=== PATIENT | male | born 1965 | race Caucasian/White ===

== ENCOUNTER 2018-06-08 13:53 | Inpatient (IN) | payer OTHER ==
--- NOTE | ~2018-06-08 | EKG ---
[place], [place] ELECTROCARDIOGRAM REPORT NAME: JENNY CHAPMAN UNIT #: [id number] ROOM: 405 DOCTOR: SULTANA DRAFT REPORT BIRTHDATE: [birth year] [facility] Test Date: 2018-06-08 Test Time: 14:13:07 Pat Name: JENNY CHAPMAN Department: Room: 405 Gender: M Turn Operator: NESSA : 1965 Requested By: ED TOPETE Order Number: [id number] Reading MD: Vinny Guerrero MD Measurements Intervals [place] Rate: 112 P: 63 [place]: 176 QRS: -51 QRSD: 104 T: 39 QT: 343 QTc: 469 Interpretive Statements Sinus tachycardia Left anterior fascicular block Anteroseptal infarct, old Baseline wander in lead(s) V1 Electronically Signed On 06-09-2018 12:03:25 PST by Vinny Guerrero MD CM:EKGRPT:ELECTROCARDIOGRAM REPORT [id number] ED TOPETE EPIPHANY DRAFT REPORT ED TOPETE
[~2018-06-08 13:53] MED LIST: OXYCONTIN60 MG PO; PERCOCET 325 MG1 TA2 PO
[2018-06-08 13:54] VITALS: BP 140/61
[2018-06-08 14:31] LABS: HEMOGLOBIN 13.4 g/dl (14.0-18.0); MEAN CELL VOLUME 88.7 fl (80.0-94.0); MEAN CORPUSCULAR HGB CONC 32.7 g/dl (33.0-37.0); MEAN PLATELET VOLUME 8.9 fl (9.6-12.3); PLATELET COUNT AUTOMATED 341 10*3/uL (130-400); RED BLOOD COUNT 4.62 10*6/uL (4.50-5.90); RED CELL DISTRI WIDTH 13.9 % (0-14.5); WHITE BLOOD COUNT 21.7 10*3/uL (4.8-10.8)
[2018-06-08 14:44] LABS: ACT PARTIAL THROMBO TIME 28.3 SECONDS (20.8-31.5); INTERNATIONAL NORM RATIO 1.1 (2.0-3.5)
[2018-06-08 14:47] LABS: ALKALINE PHOSPHATASE 96 U/L (45-117); BUN 9 mg/dl (7-24); CHLORIDE 97 mmol/L (98-107); CREATININE 0.63 mg/dL (0.70-1.30); POTASSIUM 3.8 mmol/L (3.5-5.1); SGOT/AST 21 IU/L (3-35); SGPT/ALT 36 U/L (12-78); SODIUM 134 mmol/L (136-145)
[2018-06-08 14:49] LABS: PLATELET SUFFICIENCY NORMAL (NORMAL); POLYCHROMASIA SLIGHT; TOTAL CELLS COUNTED 100 #CELLS
[2018-06-08 14:52] LABS: TROPONIN I < 0.015 ng/ml (<0.045)
[2018-06-08 14:52] LABS: ABG BASE EXCESS -2.1 mmol/L (-2.0-2.0); ABG HCO3 21.2 mmol/l (22-26); ABG O2 SATURATION 92.5 % (95-97); ARTERIAL BLOOD GAS PCO2 33.4 mmHg (35-45); ARTERIAL BLOOD GAS PH 7.419 (7.35-7.45)
[2018-06-08 15:02] VITALS: BP 140/60
[2018-06-08 15:05] VITALS: BP 126/50
--- NOTE | 2018-06-08 15:05 | NUR ---
A 52, admitted to , under the services of TANO Beltran DO with a diagnosis of SEPSIS, PNEUMONIA. Chief complaint is SHORTNESS OF BREATH. Patient arrived via ambulatory from ER. Monitor applied. Initial assessment completed. Vital signs taken and recorded. TANO BELTRAN DO notified of admission to the unit. Orders received. See assessment for past medical history, medications and allergies. Patient and/or family oriented to unit. [facility] visitation policy reviewed. Clothing/patient valuable form completed. SCOT GIVENS
[2018-06-08] MEDS ORDERED: INVOKANA300 M1 PO (15:18)
[2018-06-08] MEDS ORDERED: FLUOXETINE HYDR20 M1 PO (15:18)
[2018-06-08] MEDS ORDERED: TRESIBA FL200 UNIT/1 SQ (15:19)
[2018-06-08] MEDS ORDERED: VITAMIN D5000 UNI1 PO (15:19)
[2018-06-08] MEDS ORDERED: BUPRENORPHIN NALOXON (15:20)
[2018-06-08] MEDS ORDERED: GOOD NEIGHBOR L10 MG PO (15:20)
[2018-06-08] MEDS ORDERED: 24 HOUR ALLER15.8 ML INH (15:20)
[2018-06-08] MEDS ORDERED: QUINAPRIL-HCTZ1 EAC1 PO (15:21)
[2018-06-08] MEDS ORDERED: GLIMEPIRIDE4 M1 PO (15:35)
[2018-06-08] MEDS ORDERED: ROSUVASTATIN CA40 MG PO (15:35)
[2018-06-08] MEDS ORDERED: OLANZAPINE2.5 MG PO (15:36)
[2018-06-08] MEDS ORDERED: CO Q10100 MG PO (15:36)
[2018-06-08] MEDS ORDERED: FOLTX TABLET1 EACH PO (15:36)
[2018-06-08 16:04] VITALS: BP 135/59
[2018-06-08 20:00] VITALS: BP 123/59
--- NOTE | 2018-06-08 21:08 | NUR ---
DR. LARA WAS NOTIFIED OF THE PATIENTS SUBOXONE THAT IS NOT VERIFIED ON THE EMAR. SHE STATED WILL HAVE TO WAIT UNTIL MORNING FOR A PRESCRIPTION.
[2018-06-08] MEDS ORDERED: SUBOXONE 8 MG-1 EACH SL (21:20)
--- NOTE | 2018-06-08 23:33 | NUR ---
NOTIFIED OF FINE RALES HEARD IN BL POSTERIOR LUNG BASES. DISCUSSED PATIENT'S CLAIMS OF TAKING LASIX DAILY BUT NOT KNOWING DOSE. ALSO DISCUSSED FLUIDS GOING AT 125 ML/HR. NO NEW ORDERS RECEIVED AT THIS TIME.
[2018-06-09] VITALS: BP 135/65
[2018-06-09] MEDS ORDERED: HYDROXYZINE PAM25 M1 PO (03:20)
[2018-06-09 06:27] LABS: BASO % 0.2 % (0.0-1.0); HEMATOCRIT 36.6 % (42.0-52.0); HEMOGLOBIN 11.8 g/dl (14.0-18.0); LYMPH # 1.5 10*3/uL (1.3-4.4); LYMPH % 8.5 % (27.0-41.0); MEAN CELL VOLUME 89.5 fl (80.0-94.0); MEAN CORPUSCULAR HGB 28.9 pg (27.0-31.0); MEAN CORPUSCULAR HGB CONC 32.2 g/dl (33.0-37.0); MONO # 0.6 10*3/uL (0.1-1.0); MONO % 3.3 % (3.0-9.0); NEUT # 15.3 10*3/uL (2.3-7.9); NEUT % 87.4 % (47.0-73.0); PLATELET COUNT AUTOMATED 299 10*3/uL (130-400); RED BLOOD COUNT 4.09 10*6/uL (4.50-5.90); RED CELL DISTRI WIDTH 13.7 % (0-14.5); WHITE BLOOD COUNT 17.5 10*3/uL (4.8-10.8)
[2018-06-09 06:58] LABS: ACT PARTIAL THROMBO TIME 30.3 SECONDS (20.8-31.5); ALBUMIN 2.5 gm/dl (3.1-4.5); ALKALINE PHOSPHATASE 83 U/L (45-117); BUN 11 mg/dl (7-24); CHLORIDE 106 mmol/L (98-107); CHOLESTEROL 110 mg/dL (<200); CREATININE 0.46 mg/dL (0.70-1.30); INTERNATIONAL NORM RATIO 1.1 (2.0-3.5); PHOSPHOROUS 2.4 mg/dL (2.5-4.9); SGOT/AST 15 IU/L (3-35); SGPT/ALT 28 U/L (12-78); SODIUM 138 mmol/L (136-145); TOTAL PROTEIN 7.2 gm/dL (6.4-8.2); TRIGLYCERIDES 100 mg/dl (<150); VLDL CHOLESTEROL 20 mg/dL (6-40)
[2018-06-09 07:06] LABS: FREE T4 1.44 ng/dl (0.76-1.46); HDL CHOLESTEROL 40 mg/dl (40-60); LDL CHOLESTEROL 50 mg/dL (9-159); THYROID STIM HORMONE (HS) 0.084 uIU/ml (0.358-4.75)
[2018-06-09 08:00] VITALS: BP 112/60
--- NOTE | 2018-06-09 08:27 | NUR ---
24 HR CHART CHECK COMPLETE
--- NOTE | 2018-06-09 09:07 | NUR ---
CALLED DR GRIGSBY AND REQUESTED CONTINUATION OF PTS HOME MEDS
[2018-06-09 09:45] LABS: VITAMIN D, 25-HYDROXY 24.3 ng/mL (30-100)
--- NOTE | 2018-06-09 10:14 | NUR ---
PER REQUEST OF DR MITHCELL ASKED SECURITY TO ESCORT PT TO CAR TO RETRIEVE SUBOXONE
[2018-06-09 11:57] VITALS: BP 118/61
[2018-06-09 16:00] VITALS: BP 113/50
[2018-06-09 20:00] VITALS: BP 108/44
--- NOTE | 2018-06-09 20:59 | NUR ---
PATIENT STATES HE STILL FEELS SLIGHTLY SOB, O2 APPLIED VIA 1L NC. WILL MONITOR. CALL LIGHT LEFT IN REACH.
--- NOTE | 2018-06-09 21:47 | NUR ---
PATIENT HAS 1+ BLL EDEMA. STATES HE TOOK HIS HCTZ TODAY SO IT SHOULDN'T BE LIKE THAT. DISCUSSED WITH PATIENT SITUATION WHERE 1800 DOSE OF HCTZ WAS HELD. PATIENT MISTAKENLY THOUGH RN WAS TALKING ABOUT HYDROXYZINE. REQUESTING BOTH HYDROXYZINE AND HCTZ. BOTH GIVEN AT THIS TIME. PATIENT ALSO COVERED WITH 22 UNITS OF INSULIN FOR BSG 482. WILL MONITOR.
--- NOTE | 2018-06-09 23:42 | NUR ---
SPOKE TO REGARDING PATIENT'S BSG 417 AFTER 22 UNITS OF INSULIN. INSTRUCTED TO GIVE AN ADDITIONAL DOSE OF INSULIN PER SLIDING SCALE (22UNITS) AND RE-CHECK BSG IN 1 HR.
[2018-06-10] VITALS: BP 118/52
--- NOTE | 2018-06-10 01:03 | NUR ---
NOTIFIED OF BSG 303 AFTER 22 UNITS OF INSULIN. NO NEED FOR ANY MORE INSULIN AT THIS TIME. INSTRUCTED TO CHECK BSG IN AM.
[2018-06-10 07:41] LABS: BASO % 0.2 % (0.0-1.0); HEMATOCRIT 36.1 % (42.0-52.0); HEMOGLOBIN 11.7 g/dl (14.0-18.0); LYMPH # 1.4 10*3/uL (1.3-4.4); LYMPH % 7.9 % (27.0-41.0); MEAN CELL VOLUME 89.6 fl (80.0-94.0); MEAN CORPUSCULAR HGB CONC 32.4 g/dl (33.0-37.0); MEAN PLATELET VOLUME 9.1 fl (9.6-12.3); MONO # 0.7 10*3/uL (0.1-1.0); MONO % 4.2 % (3.0-9.0); NEUT # 15.2 10*3/uL (2.3-7.9); NEUT % 86.9 % (47.0-73.0); PLATELET COUNT AUTOMATED 321 10*3/uL (130-400); RED BLOOD COUNT 4.03 10*6/uL (4.50-5.90); WHITE BLOOD COUNT 17.4 10*3/uL (4.8-10.8)
--- NOTE | 2018-06-10 07:48 | NUR ---
NOTIFIED OF HOME SUBOXONE NOT BEING ORDERED. AWARE THAT PATIENT HAS HIS OWN SUPPLY WITH HIM. NEW ORDERS TO FOLLOW.
[2018-06-10 07:51] LABS: ALBUMIN 2.5 gm/dl (3.1-4.5); ALKALINE PHOSPHATASE 94 U/L (45-117); BUN 17 mg/dl (7-24); CHLORIDE 107 mmol/L (98-107); CREATININE 0.58 mg/dL (0.70-1.30); POTASSIUM 3.8 mmol/L (3.5-5.1); SGOT/AST 23 IU/L (3-35); SGPT/ALT 29 U/L (12-78); SODIUM 140 mmol/L (136-145); TOTAL PROTEIN 6.7 gm/dL (6.4-8.2)
--- NOTE | 2018-06-10 09:00 | NUR ---
Phlebotomist Lab Assistant in to talk to patient. Patient states lives at home with alone. There are few steps in the home. Physician: francis jin [facility]acy: [facility] Home health services: none Patient's level of ADLs: INDEPENDENT Patient has working utilities: all working DME: none Follow-up physician's appointment after d/c: will be made by hospitalist nurse director upon discharge Does patient want to access PORTAL?: no Discharge plan discussed with patient, patient lives at home alone, he is independent in adls and ambulation, patient states he will be going back home when able and denies any home needs. JOSÉ SANTOS
[2018-06-10] MEDS ORDERED: MUCINEX ER600 MG PO (10:34)
[2018-06-10] MEDS ORDERED: LEVAQUIN750 M1 PO (10:35)
[2018-06-10] MEDS ORDERED: PREDNISONE10 MG PO (10:35)
--- NOTE | 2018-06-10 13:33 | NUR ---
Discharge instructions reviewed with patient/family. Patient receptive and verbalizes understanding. Follow-up care arranged. Written instructions given to patient/family. ADONAY AMADOR
== END 2018-06-10 13:59 | disposition home or self-care (01) | DRG 871 ==
LOC: ED 13:53 → EDHOLD 15:17 → 4E 16:13
PROVIDERS: Family Medicine; Nurse Practitioner Family; Student in an Organized Health Care Education/Training Program; ADMIT Internal Medicine
DX: A41.9 Sepsis, unspecified organism (principal); J18.9 Pneumonia, unspecified organism; J96.01 Acute respiratory failure with hypoxia; J44.1 Chronic obstructive pulmonary disease with (acute) exacerbation; E87.1 Hypo-osmolality and hyponatremia; E44.0 Moderate protein-calorie malnutrition; J44.0 Chronic obstructive pulmonary disease with (acute) lower respiratory infection; R65.20 Severe sepsis without septic shock; I10 Essential (primary) hypertension; D64.9 Anemia, unspecified; E78.5 Hyperlipidemia, unspecified; E11.65 Type 2 diabetes mellitus with hyperglycemia; J30.2 Other seasonal allergic rhinitis; F32.9 Major depressive disorder, single episode, unspecified; F17.210 Nicotine dependence, cigarettes, uncomplicated; E83.41 Hypermagnesemia; E66.9 Obesity, unspecified; Z87.898 Personal history of other specified conditions; Z71.6 Tobacco abuse counseling; Z88.0 Allergy status to penicillin; Z91.030 Bee allergy status; Z83.2 Family history of diseases of the blood and blood-forming organs and certain disorders involving the immune mechanism; Z83.3 Family history of diabetes mellitus; Z79.899 Other long term (current) drug therapy; Z79.84 Long term (current) use of oral hypoglycemic drugs; Z68.33 Body mass index [BMI] 33.0-33.9, adult

== ENCOUNTER 2019-08-21 09:05 | Inpatient (IN) | payer SELFPAY ==
[~2019-08-21] VITALS: Ht 185.4 cm; Wt 125.0 kg
[2019-08-21] VITALS (9 sets, daily range): BP systolic 100–146; BP diastolic 51–78
[~2019-08-21 09:05] MED LIST changes: +24 HOUR ALLER15.8 ML INH; +BUPRENORPHIN NALOXON; +CO Q10100 MG PO; +FLUOXETINE HYDR20 M1 PO; +FOLTX TABLET1 EACH PO; +GLIMEPIRIDE4 M1 PO; +GOOD NEIGHBOR L10 MG PO; +HYDROXYZINE PAM25 M1 PO; +INVOKANA300 M1 PO; +LEVAQUIN750 M1 PO; +MUCINEX ER600 MG PO; +OLANZAPINE2.5 MG PO; +PREDNISONE10 MG PO; +QUINAPRIL-HCTZ1 EAC1 PO; +ROSUVASTATIN CA40 MG PO; +SUBOXONE 8 MG-1 EACH SL; +TRESIBA FL200 UNIT/1 SQ; +VITAMIN D5000 UNI1 PO
[2019-08-21 09:25] LABS: HEMATOCRIT 45.7 % (42.0-52.0); HEMOGLOBIN 14.5 g/dl (14.0-18.0); MEAN CELL VOLUME 91.2 fl (80.0-94.0); MEAN CORPUSCULAR HGB 28.9 pg (27.0-31.0); MEAN CORPUSCULAR HGB CONC 31.7 g/dl (33.0-37.0); MEAN PLATELET VOLUME 9.1 fl (9.6-12.3); PLATELET COUNT AUTOMATED 163 10*3/uL (130-400); RED BLOOD COUNT 5.01 10*6/uL (4.50-5.90); RED CELL DISTRI WIDTH 14.4 % (0-14.5); WHITE BLOOD COUNT 11.6 10*3/uL (4.8-10.8)
[2019-08-21 09:44] LABS: ALBUMIN 3.1 gm/dl (3.1-4.5); ALKALINE PHOSPHATASE 77 U/L (45-117); BUN 16 mg/dl (7-24); CHLORIDE 100 mmol/L (98-107); CREATININE 0.97 mg/dL (0.70-1.30); POTASSIUM 3.9 mmol/L (3.5-5.1); SGOT/AST 32 IU/L (3-35); SGPT/ALT 52 U/L (12-78); SODIUM 134 mmol/L (136-145); TOTAL PROTEIN 7.9 gm/dL (6.4-8.2)
[2019-08-21 09:46] LABS: TROPONIN I < 0.015 ng/ml (<0.045)
[2019-08-21 09:50] LABS: BASOPHILS 1 % (0-1); TOTAL CELLS COUNTED 100 #CELLS
[2019-08-21 09:51] LABS: PLATELET SUFFICIENCY NORMAL (NORMAL); POLYCHROMASIA SLIGHT
--- NOTE | 2019-08-21 10:03 | NUR ---
PT GIVEN PILLOW ADJUSTED BED TO HIGH FOWLERS POSITION OF COMFORT CALL LIGHT IN REACH
[2019-08-21] MEDS ORDERED: FENOFIBRATE54 MG PO (10:43)
[2019-08-21] MEDS ORDERED: ARNUITY ELLIP200 MCG INH (10:44)
[2019-08-21] MEDS ORDERED: FISH OIL CONC1000 M2 PO (10:45)
--- NOTE | 2019-08-21 10:58 | NUR ---
A 53, admitted to 5E, under the services of RANJIT Flores DO with a diagnosis of SEPSIS AND PNEUMONIA. Chief complaint is SHORTNESS OF BREATH. Patient arrived via bed from ER. Monitor applied. Initial assessment completed. Vital signs taken and recorded. RANJIT FLORES DO notified of admission to the unit. Orders received. See assessment for past medical history, medications and allergies. Patient and/or family oriented to unit. [facility] visitation policy reviewed. Clothing/patient valuable form completed. MAKAYLA ORTEGA
--- NOTE | 2019-08-21 12:33 | NUR ---
DR GATES NOTIFIED THAT PT MED REC IS UP TO DATE.
--- NOTE | 2019-08-21 12:40 | NUR ---
DR GATES NOTIFIED THAT FLUIDS SHUT OFF AT THIS TIME DUE TO PT LUNG SOUNDS.
--- NOTE | 2019-08-21 13:50 | NUR ---
PT BLOOD SUGAR OBTAINED, 198. PHYSICIANS AT BEDSIDE AND AWARE. FLU SWAB OBTAINED AND SENT TO LAB. PT SITTING UP IN CHAIR BESIDE BED. SUPPLEMENTAL OXYGEN IN PLACE AT 5L. CALL LIGHT IN REACH.
[2019-08-21 13:55] LABS: ABG BASE EXCESS -18.9 mmol/L (-2.0-2.0); ARTERIAL BLOOD GAS PH 7.214 (7.35-7.45)
--- NOTE | 2019-08-21 14:58 | NUR ---
DR NAYLOR NOTIFIED OF CONSULT AND GIVES ORDERS TO SEND PT TO ICCU. DR GATES NOTIFIED AND STATES THAT SHE WILL PUT TRANSFER ORDER IN.
--- NOTE | 2019-08-21 15:16 | NUR ---
RECIVED IN [facility] FROM 5E, FOR RESP DISTRESS PT AWAKE AND ALERT, RESP LABORED, AND WET COARSE RALES TO MID 1+ PITTING ANKLE EDEMA DR MITCHELL HERE IN [facility] UPON PTS ARRIVAL
--- NOTE | 2019-08-21 15:25 | NUR ---
NOTIFIED PT DAUGHTER THAT PT HAS BEEN TRANSFERRED TO [facility].
[2019-08-21 15:50] LABS: BUN 15 mg/dl (7-24); CHLORIDE 99 mmol/L (98-107); CREATININE 0.81 mg/dL (0.70-1.30); POTASSIUM 3.9 mmol/L (3.5-5.1); SODIUM 129 mmol/L (136-145)
[2019-08-21 16:10] LABS: ABG BASE EXCESS -18.5 mmol/L (-2.0-2.0); ARTERIAL BLOOD GAS PH 7.202 (7.35-7.45)
--- NOTE | 2019-08-21 16:20 | NUR ---
SPOKE WITH DR. NAYLOR REGARDING CONSULT AND ABG RESULTS. HE STATES TO INTUBATE PATIENT. ALSO ORDERED FROM DR. MITCHELL/DR. CHIU TO SWAB FOR COVID [address] IN NEGATIVE AIR FLOW
--- NOTE | 2019-08-21 17:10 | NUR ---
Respirations labored at 30 per minute. Heart rate 120's sinus tachycardia noted. Bp 150's systolic.
--- NOTE | 2019-08-21 17:10 | NUR ---
Anesthesia here and intubated with a #7.5 endotube at 25 lip. Sedated with diprivan. Placed on vent with TV 550; CMV 24; and Peep 8 with Fio2 50%. RIJ MLC placed and right radial art line placed with good waveform noted. #18 ukrainian neri placed with return 800cc clear yellow urine. Ogt placed and clamped.
[2019-08-21 19:02] LABS: BILIRUBIN NEGATIVE (NEGATIVE); BLOOD 2+ (NEGATIVE); CLARITY CLEAR (CLEAR); COLOR YELLOW (YELLOW); GLUCOSE 2+ (NEGATIVE); KETONE 3+ (NEGATIVE); LEUKO ESTERASE NEGATIVE (NEGATIVE); NITRITE NEGATIVE (NEGATIVE); SPECIFIC GRAVITY 1.025 (1.005-1.030); UROBILINOGEN 0.2 E.U./dl (0.2-1.0)
[2019-08-21 19:05] LABS: RBC 0-2 rbc/hpf (0-2)
[2019-08-21 19:09] LABS: URINE AMPHETAMINES < 1000 (1000ng/ml); URINE BARBITURATES < 200 (200ng/ml); URINE BENZODIAZEPINES < 200 (200ng/ml); URINE CANNABINOIDS (THC) < 50 (50ng/ml); URINE COCAINE < 300 (300ng/ml); URINE METHADONE < 300 (300ng/ml); URINE OPIATES < 300 (300ng/ml)
[2019-08-21 19:11] LABS: URINE PHENCYCLIDINE < 25 (25ng/ml)
--- NOTE | 2019-08-21 20:12 | NUR ---
ON ASSESSMENT PATIENT IS ADEQUATELY SEDATED ON DIPRIVAN AT 50MCG/KG/MIN. HE REMAINS ORALLY INTUBATED, ON VENTILATOR. PT IS 1:1 IN NEGATIVE AIRFLOW ROOM. IN CONSTANT VIEW OF MYSELF IN ANTEROOM WHEN I'M NOT IN THE ROOM WITH HIM. HE'S TACHYPNEIC AND TACHYCARDIC AND DIOPHORETIC. ARTERIAL LINE IN PLACE. INSULIN DRIP HAS BEEN STARTED AT 2UNITS/HR FOR BSBS OF 220. SEE ALL APPROPRIATE INTERVENTIONS.
[2019-08-21 20:16] LABS: ABG BASE EXCESS -21.8 mmol/L (-2.0-2.0); ARTERIAL BLOOD GAS PH 6.98 (7.35-7.45)
--- NOTE | 2019-08-21 20:25 | NUR ---
DR NAYLOR NOTIFIED OF CRITICAL ABG RESULTS. RESPIRATORY HERE. VENTILATOR ADJUSTED PER ORDERS. REVIEW OF ALL ORDERS. ORDERS RECEIVED.
--- NOTE | 2019-08-21 20:40 | NUR ---
Infectious disease answering service notified of consult.
[2019-08-21 20:41] LABS: ALBUMIN 2.8 gm/dl (3.1-4.5); ALKALINE PHOSPHATASE 87 U/L (45-117); BUN 19 mg/dl (7-24); CHLORIDE 103 mmol/L (98-107); CREATININE 1.01 mg/dL (0.70-1.30); PHOSPHOROUS 3.9 mg/dL (2.5-4.9); POTASSIUM 4.2 mmol/L (3.5-5.1); SGOT/AST 37 IU/L (3-35); SGPT/ALT 45 U/L (12-78); SODIUM 134 mmol/L (136-145); TOTAL PROTEIN 7.6 gm/dL (6.4-8.2)
--- NOTE | 2019-08-21 21:21 | NUR ---
Shift chart check completed.24 HR chart check completed. Dr Guzámn had talked with Dr Malin earlier about consult. Molly from daylight had called [facility] to notify of consult. Dr Crespo returned call. We reviewed meds and no new orders. D10 has been started at 50/hr and increased to 60/hr per Dr Bonilla order. An amp of Sodium Bicarb has been given. Dr Bonilla was called with latest CMP/Phos. Anion Gap correctd for Albumin remains 23. Orders received.
[2019-08-21 22:01] LABS: ARTERIAL BLOOD GAS PH 7.08 (7.35-7.45)
--- NOTE | 2019-08-21 22:40 | NUR ---
NS INFUSING AT 500 ML/HR, TO INFUSE FOR 1500-2000ML. D10W AT 60/HR. INSULIN DRIP TO 6 UNITS/HR FOR LATEST BSBS OF 311. PROPOFOL CONTINUES AT 50MCG/KG/MIN. PT RESPIRATORY RATE HAS SLOWED FROM MID 30'S TO UPPER 20'S. HR HAS SLOWED FROM UPPER 120'S TO LOW 100-110. ADEQUATELY SEDATED AT THIS TIME.
[2019-08-21 22:46] LABS: BUN 23 mg/dl (7-24); CHLORIDE 101 mmol/L (98-107); CREATININE 1.16 mg/dL (0.70-1.30); POTASSIUM 3.8 mmol/L (3.5-5.1); SODIUM 132 mmol/L (136-145)
[2019-08-22] VITALS (34 sets, daily range): BP systolic 88–140; BP diastolic 55–71
[2019-08-22 00:38] LABS: BUN 26 mg/dl (7-24); CHLORIDE 105 mmol/L (98-107); CREATININE 1.22 mg/dL (0.70-1.30); PHOSPHOROUS 2.6 mg/dL (2.5-4.9); POTASSIUM 3.7 mmol/L (3.5-5.1); SODIUM 134 mmol/L (136-145)
--- NOTE | 2019-08-22 00:49 | NUR ---
DR ONEILL IN TO CHECK ON PATIENT. REVIEWED FLUIDS/MEDS/LABS WITH HIM. PHENYLEPHRINE WAS STARTED AT 40MCG/MIN FOR MAP < 65 AND THIS HAS IMPROVED. PER DR ONEILL 10 UNITS OF REGULAR INSULIN GIVEN AND A K-RIDER UP TO INFUSE. DIPRIVAN HAS BEEN TITRATED TO 15MCG/KG/MIN FOR HYPOTENSION. SEE ALL APPROPRIATE INTERVENTIONS.
--- NOTE | 2019-08-22 01:07 | NUR ---
PT BECOMING MORE TACHYPNEIC. WHEN I CALL HIS NAME. HE IS NODDING TO ME. REASSURANCES GIVEN. PROPOFOL BACK TO 30MCG/KG/MIN.
--- NOTE | 2019-08-22 02:15 | NUR ---
PT REMAINS ADEQUATELY SEDATED ON DIPRIVAN AT 30MCG/KG/MIN. RESPIRATORY RATE CONTINUES UPPER 20'S TO LOW 30'S. HR 100-110. ARTERIAL LINE INTACT. Q15M BP'S ON PHENYLEPHRINE AT 40MCG/MIN. INSULIN DRIP CONTINUES AT 10 UNITS/HR. SEE ALL INTERVENTIONS. NEGATIVE AIRFLOW MAINTAINED. SOFT RESTRAINTS INTACT.
[2019-08-22 02:20] LABS: BUN 25 mg/dl (7-24); CHLORIDE 103 mmol/L (98-107); CREATININE 1.23 mg/dL (0.70-1.30); POTASSIUM 3.9 mmol/L (3.5-5.1); SODIUM 133 mmol/L (136-145)
[2019-08-22 04:42] LABS: BUN 25 mg/dl (7-24); CHLORIDE 105 mmol/L (98-107); PHOSPHOROUS 1.3 mg/dL (2.5-4.9); POTASSIUM 3.8 mmol/L (3.5-5.1); SODIUM 133 mmol/L (136-145)
--- NOTE | 2019-08-22 04:44 | NUR ---
AT 0315 PT WAS RESTLESS, INDICATED COLD AND WANTED BLANKETS WHILE CHARMAINE PERRY IN ROOM. BLANKETS WERE PROVIDED AND SHE TITRATED THE PROPOFOL UP TO 40MCG/KG/MIN FOR RESTLESSNESS AND THIS HAS BEEN EFFECTIVE. BP MAINTAINING ON PHENYLEPHRINE 40MCG/MIN. INSULIN CONTINUES AT 12UNITS/HR.
--- NOTE | 2019-08-22 05:50 | NUR ---
DR NAYLOR CALLED IN TO CHECK ON PATIENT. REVIEWED LABS, CURRENT DRIPS/DRIP RATES AND PT'S VITAL SIGNS. NO NEW ORDERS AT THIS TIME.
[2019-08-22 06:27] LABS: ACT PARTIAL THROMBO TIME 39.1 SECONDS (20.0-32.1)
[2019-08-22 06:28] LABS: HEMATOCRIT 40.9 % (42.0-52.0); MEAN CELL VOLUME 89.3 fl (80.0-94.0); MEAN CORPUSCULAR HGB 28.4 pg (27.0-31.0); MEAN CORPUSCULAR HGB CONC 31.8 g/dl (33.0-37.0); MEAN PLATELET VOLUME 9.4 fl (9.6-12.3); NUCLEATED RED BLOOD CELL 0.1 % (0.0-0.0); RED BLOOD COUNT 4.58 10*6/uL (4.50-5.90); RED CELL DISTRI WIDTH 14.6 % (0-14.5); WHITE BLOOD COUNT 17.8 10*3/uL (4.8-10.8)
[2019-08-22 06:29] LABS: BUN 24 mg/dl (7-24); CHLORIDE 108 mmol/L (98-107); CREATININE 1.21 mg/dL (0.70-1.30); POTASSIUM 3.7 mmol/L (3.5-5.1); SODIUM 136 mmol/L (136-145)
[2019-08-22 06:42] LABS: PLATELET COUNT AUTOMATED 218 10*3/uL (130-400)
[2019-08-22 06:52] LABS: DOHLE BODIES FEW; PLATELET SUFFICIENCY NORMAL (NORMAL); TOTAL CELLS COUNTED 100 #CELLS; TOXIC GRANULATION SLIGHT
[2019-08-22 06:53] LABS: BURR CELLS FEW; POLYCHROMASIA SLIGHT
[2019-08-22 07:53] LABS: ARTERIAL BLOOD GAS PH 7.298 (7.35-7.45)
[2019-08-22 07:55] LABS: ABG BASE EXCESS -7.2 mmol/L (-2.0-2.0)
--- NOTE | 2019-08-22 08:00 | NUR ---
Resting in bed. Sedated on diprivan gtt at 40 michael's (30cc/hr), insulin gtt infusing at 14 units/hr, D10 infusing at 60cc/hr, and D5w with 40kcl infusing at 125cc/hr all via RIJ MLC. Right radial art line intact with good hemodynamic response. Hunt draining clear yellow urine with good output. TV 600;cmv 24, fio2 50% and peep 8. Scattered rhonchi heard in lung huerta. Blood sugar 188. Rectal temp 102.
--- NOTE | 2019-08-22 08:45 | NUR ---
[place] GTT TITRATED OFF. BP 101/64 WITH A MAP OF 74.
[2019-08-22 08:48] LABS: BUN 20 mg/dl (7-24); CHLORIDE 105 mmol/L (98-107); CREATININE 1.14 mg/dL (0.70-1.30); POTASSIUM 3.7 mmol/L (3.5-5.1); SODIUM 134 mmol/L (136-145)
[2019-08-22 08:57] LABS: PHOSPHOROUS 0.7 mg/dL (2.5-4.9)
--- NOTE | 2019-08-22 10:00 | NUR ---
DR. NAYLOR HERE IN ROOM AND EXAMINED PATIENT. DIPRIVAN BOLUS OF 10CC GIVEN AND RESPIRATORY RATE DECREASED TO 37 BREATHS PER MINUTE FROM 44. HE SPOKE WITH ATTENDING DR. REYNOLDS AND BOTH HAVE AGREED TO TRANSFER PATIENT TO [facility]. DR. THOMAS HERE AND MADE CALL TO ONE CALL FOR TRANSFER.
--- NOTE | 2019-08-22 10:44 | NUR ---
SPOKE WITH [facility]. ADRIANA STATES THAT AFTER DISCUSSION WITH [facility] AND FACILITY THEY WANT PATIENT TO GO BY [facility]. THEY WILL BE HERE IN 1 HOUR AND 30 MINS.
[2019-08-22 10:46] LABS: BUN 19 mg/dl (7-24); CHLORIDE 103 mmol/L (98-107); CREATININE 1.11 mg/dL (0.70-1.30); POTASSIUM 4.3 mmol/L (3.5-5.1); SODIUM 131 mmol/L (136-145)
[2019-08-22 11:02] LABS: PHOSPHOROUS 0.8 mg/dL (2.5-4.9)
--- NOTE | 2019-08-22 11:46 | NUR ---
REPORT CALLED TO [facility]
[2019-08-22] MEDS ORDERED: PREMIERPRO RX500 M3 IV (11:50)
[2019-08-22] MEDS ORDERED: LEVOFLOXAC750 MG/150 IV (11:50)
[2019-08-22] MEDS ORDERED: CEFEPIME HYDROCH2 GM IJ (11:50)
[2019-08-22] MEDS ORDERED: VANCOMYCIN2 GM/20 ML IV (11:50)
[2019-08-22] MEDS ORDERED: TAMIFLU 75MG CA75 MG PO (11:50)
--- NOTE | 2019-08-22 12:36 | NUR ---
[facility] HERE TO TRANSFER PATIENT.
--- NOTE | 2019-08-22 13:30 | NUR ---
[facility] REFUSED TO TAKE BAG OF BELONGINGS WITH WALLET AND A BOTTLE OF SUBOXONE. GIVEN TO NURSE SHIP'S COOK
--- NOTE | 2019-08-22 13:34 | NUR ---
DISCHARGED TO [facility] VIA [facility].
[2019-08-23 16:08] LABS: MYCOPLASMA PNEUMONIAE IGG 144 U/mL (0-99); MYCOPLASMA PNEUMONIAE IGG 168 U/mL (0-99); MYCOPLASMA PNEUMONIAE IGM <770 U/mL (0-769)
[2019-08-26 00:05] LABS: PARAINFLUENZA 1 CF Negative (Neg:<1:8); PARAINFLUENZA 2 CF Negative (Neg:<1:8); PARAINFLUENZA 3 CF Negative (Neg:<1:8)
== END 2019-08-22 13:35 | disposition short-term general hospital (02) | DRG 871 ==
LOC: ED 09:05 → EDHOLD 10:16 → 5E 10:16 → ICCU 15:07 → 4E 19:28
PROVIDERS: Emergency Medicine; Internal Medicine Critical Care Medicine; Student in an Organized Health Care Education/Training Program; ADMIT Internal Medicine
PROC: 03HY32Z Insertion of Monitoring Device into Upper Artery, Percutaneous Approach (ICD-10-PCS; principal; 2019-08-21)
PROC: B548ZZA Ultrasonography of Superior Vena Cava, Guidance (ICD-10-PCS; principal; 2019-08-21)
PROC: 5A1935Z Respiratory Ventilation, Less than 24 Consecutive Hours (ICD-10-PCS; principal; 2019-08-21)
PROC: 4A133B1 Monitoring of Arterial Pressure, Peripheral, Percutaneous Approach (ICD-10-PCS; principal; 2019-08-21)
PROC: 02HV33Z Insertion of Infusion Device into Superior Vena Cava, Percutaneous Approach (ICD-10-PCS; principal; 2019-08-21)
PROC: 0BH18EZ Insertion of Endotracheal Airway into Trachea, Via Natural or Artificial Opening Endoscopic (ICD-10-PCS; principal; 2019-08-21)
PROC: 4A133J1 Monitoring of Arterial Pulse, Peripheral, Percutaneous Approach (ICD-10-PCS; principal; 2019-08-21)
DX: A41.9 Sepsis, unspecified organism (principal); R65.21 Severe sepsis with septic shock; J18.9 Pneumonia, unspecified organism; J96.01 Acute respiratory failure with hypoxia; E11.10 Type 2 diabetes mellitus with ketoacidosis without coma; E87.1 Hypo-osmolality and hyponatremia; J44.1 Chronic obstructive pulmonary disease with (acute) exacerbation; J44.0 Chronic obstructive pulmonary disease with (acute) lower respiratory infection; E44.0 Moderate protein-calorie malnutrition; F33.1 Major depressive disorder, recurrent, moderate; E87.2 Acidosis; I10 Essential (primary) hypertension; E78.5 Hyperlipidemia, unspecified; J30.2 Other seasonal allergic rhinitis; E66.9 Obesity, unspecified; F41.9 Anxiety disorder, unspecified; F14.10 Cocaine abuse, uncomplicated; Z96.1 Presence of intraocular lens; R68.89 Other general symptoms and signs; F17.210 Nicotine dependence, cigarettes, uncomplicated; Z88.0 Allergy status to penicillin; Z68.36 Body mass index [BMI] 36.0-36.9, adult; Z91.030 Bee allergy status; Z79.899 Other long term (current) drug therapy; Z79.4 Long term (current) use of insulin; Z82.49 Family history of ischemic heart disease and other diseases of the circulatory system; Z98.49 Cataract extraction status, unspecified eye; Z83.3 Family history of diabetes mellitus

== ENCOUNTER → 2022-01-22 | Outpatient (CLI) | payer OTHER ==
[~2022-01-22] MED LIST changes: +ARNUITY ELLIP200 MCG INH; +CEFEPIME HYDROCH2 GM IJ; +FENOFIBRATE54 MG PO; +FISH OIL CONC1000 M2 PO; +LEVOFLOXAC750 MG/150 IV; +PREMIERPRO RX500 M3 IV; +TAMIFLU 75MG CA75 MG PO; +VANCOMYCIN2 GM/20 ML IV
[2022-01-22 09:56] LABS: BASO # 0.2 10*3/uL (0.0-0.1); BASO % 1.6 % (0.0-1.0); EOS # 0.5 10*3/uL (0.0-0.4); EOS % 5.1 % (1.0-4.0); HEMATOCRIT 37.7 % (42.0-52.0); LYMPH % 30.7 % (27.0-41.0); MEAN CELL VOLUME 80.9 fl (80.0-94.0); MEAN CORPUSCULAR HGB 24.2 pg (27.0-31.0); MEAN PLATELET VOLUME 9.9 fl (9.6-12.3); MONO # 0.7 10*3/uL (0.1-1.0); MONO % 7.5 % (3.0-9.0); NEUT # 5.3 10*3/uL (2.3-7.9); NEUT % 54.6 % (47.0-73.0); PLATELET COUNT AUTOMATED 180 10*3/uL (130-400); RED BLOOD COUNT 4.66 10*6/uL (4.50-5.90); RED CELL DISTRI WIDTH 17.6 % (0-14.5); WHITE BLOOD COUNT 9.7 10*3/uL (4.8-10.8)
[2022-01-22 10:45] LABS: CHLORIDE 106 mmol/L (98-107); POTASSIUM 4.2 mmol/L (3.5-5.1); SODIUM 137 mmol/L (136-145)
[2022-01-22 10:51] LABS: ALKALINE PHOSPHATASE 95 U/L (45-117); BUN 24 mg/dl (7-24); CREATININE 1.24 mg/dL (0.70-1.30); SGOT/AST 20 IU/L (3-35); SGPT/ALT 37 U/L (12-78); TOTAL PROTEIN 7.6 gm/dL (6.4-8.2)
== END | disposition home or self-care (01) ==
LOC: LAB 09:21
PROVIDERS: ATTEND Internal Medicine Infectious Disease
DX: M86.9 Osteomyelitis, unspecified (principal)

== ENCOUNTER → 2022-02-14 | Outpatient (CLI) | payer OTHER ==
[2022-02-14 11:54] LABS: BASO # 0.1 10*3/uL (0.0-0.1); EOS # 0.2 10*3/uL (0.0-0.4); EOS % 2.3 % (1.0-4.0); HEMATOCRIT 40.4 % (42.0-52.0); LYMPH # 2.6 10*3/uL (1.3-4.4); MEAN CELL VOLUME 81.8 fl (80.0-94.0); MEAN CORPUSCULAR HGB 24.7 pg (27.0-31.0); MEAN CORPUSCULAR HGB CONC 30.2 g/dl (33.0-37.0); MEAN PLATELET VOLUME 9.5 fl (9.6-12.3); MONO # 0.6 10*3/uL (0.1-1.0); MONO % 6.3 % (3.0-9.0); NEUT # 6.3 10*3/uL (2.3-7.9); NEUT % 64.1 % (47.0-73.0); PLATELET COUNT AUTOMATED 214 10*3/uL (130-400); RED BLOOD COUNT 4.94 10*6/uL (4.50-5.90); RED CELL DISTRI WIDTH 17.3 % (0-14.5); WHITE BLOOD COUNT 9.9 10*3/uL (4.8-10.8)
[2022-02-14 12:16] LABS: ALKALINE PHOSPHATASE 103 U/L (45-117); BUN 23 mg/dl (7-24); CHLORIDE 110 mmol/L (98-107); CHOLESTEROL 147 mg/dL (<200); CREATININE 1.25 mg/dL (0.70-1.30); LDL CHOLESTEROL 76 mg/dL (9-159); POTASSIUM 5.2 mmol/L (3.5-5.1); SGOT/AST 27 IU/L (3-35); SGPT/ALT 49 U/L (12-78); SODIUM 139 mmol/L (136-145); TOTAL PROTEIN 7.8 gm/dL (6.4-8.2); TRIGLYCERIDES 151 mg/dl (<150)
[2022-02-15 12:07] LABS: CREATININE,URINE 96.4 mg/dL (Not Estab.)
== END | disposition home or self-care (01) ==
LOC: LAB 11:37
PROVIDERS: Nurse Practitioner Family; ATTEND Ophthalmology Retina Specialist
DX: E11.9 Type 2 diabetes mellitus without complications (principal); H34.239 Retinal artery branch occlusion, unspecified eye; I10 Essential (primary) hypertension; E78.5 Hyperlipidemia, unspecified

== ENCOUNTER → 2022-04-24 | Outpatient (CLI) | payer OTHER | END | disposition home or self-care (01) | LOC: US 09:56 | PROVIDERS: ATTEND Ophthalmology Retina Specialist | DX: H34.239 Retinal artery branch occlusion, unspecified eye (principal); I65.23 Occlusion and stenosis of bilateral carotid arteries; I10 Essential (primary) hypertension; E11.9 Type 2 diabetes mellitus without complications ==

== ENCOUNTER → 2022-08-21 | Outpatient (CLI) | payer OTHER ==
[2022-08-21 12:15] LABS: BASO # 0.1 10*3/uL (0.0-0.1); EOS # 0.2 10*3/uL (0.0-0.4); EOS % 1.9 % (1.0-4.0); HEMATOCRIT 41.3 % (42.0-52.0); LYMPH # 1.8 10*3/uL (1.3-4.4); LYMPH % 21.9 % (27.0-41.0); MEAN CELL VOLUME 85.2 fl (80.0-94.0); MEAN CORPUSCULAR HGB 26.4 pg (27.0-31.0); MEAN PLATELET VOLUME 10.1 fl (9.6-12.3); MONO # 0.6 10*3/uL (0.1-1.0); MONO % 6.7 % (3.0-9.0); NEUT # 5.7 10*3/uL (2.3-7.9); NEUT % 68.1 % (47.0-73.0); PLATELET COUNT AUTOMATED 207 10*3/uL (130-400); RED BLOOD COUNT 4.85 10*6/uL (4.50-5.90); WHITE BLOOD COUNT 8.4 10*3/uL (4.8-10.8)
[2022-08-21 12:33] LABS: ALKALINE PHOSPHATASE 87 U/L (46-116); BUN 20 mg/dl (9-23); CHLORIDE 104 mmol/L (98-107); CHOLESTEROL 150 mg/dL (<200); LDL CHOLESTEROL 78 mg/dL (9-159); POTASSIUM 4.3 mmol/L (3.4-5.1); SGPT/ALT 24 U/L (10-49); TOTAL PROTEIN 7.3 gm/dL (6.0-8.0); TRIGLYCERIDES 163 mg/dl (<150)
[2022-08-22 05:07] LABS: HBSAG Negative (Negative); HEP B CORE AB, IGM Negative (Negative); HEPATITIS C ANTIBODY Non Reactive (Non Reactive)
== END | disposition home or self-care (01) ==
LOC: LAB 11:35
PROVIDERS: Nurse Practitioner Family; ATTEND Nurse Practitioner Family
DX: I10 Essential (primary) hypertension (principal); E11.9 Type 2 diabetes mellitus without complications; E78.5 Hyperlipidemia, unspecified

== ENCOUNTER → 2022-11-22 | Outpatient (CLI) | payer OTHER ==
[2022-11-22 12:32] LABS: BASO # 0.1 10*3/uL (0.0-0.1); EOS # 0.2 10*3/uL (0.0-0.4); HEMATOCRIT 44.6 % (42.0-52.0); LYMPH # 2.2 10*3/uL (1.3-4.4); LYMPH % 23.4 % (27.0-41.0); MEAN CELL VOLUME 85.1 fl (80.0-94.0); MEAN CORPUSCULAR HGB 26.7 pg (27.0-31.0); MEAN CORPUSCULAR HGB CONC 31.4 g/dl (33.0-37.0); MEAN PLATELET VOLUME 9.6 fl (9.6-12.3); MONO # 0.6 10*3/uL (0.1-1.0); MONO % 6.3 % (3.0-9.0); NEUT # 6.3 10*3/uL (2.3-7.9); NEUT % 66.8 % (47.0-73.0); PLATELET COUNT AUTOMATED 212 10*3/uL (130-400); RED BLOOD COUNT 5.24 10*6/uL (4.50-5.90); RED CELL DISTRI WIDTH 15.9 % (0-14.5); WHITE BLOOD COUNT 9.4 10*3/uL (4.8-10.8)
[2022-11-22 12:48] LABS: URINE CREATININE RANDOM 73.48 mg/dL
[2022-11-22 13:00] LABS: ALKALINE PHOSPHATASE 91 U/L (46-116); BUN 12 mg/dl (9-23); CHLORIDE 102 mmol/L (98-107); CHOLESTEROL 146 mg/dL (<200); LDL CHOLESTEROL 66 mg/dL (9-159); POTASSIUM 5.3 mmol/L (3.4-5.1); SGPT/ALT 25 U/L (10-49); TOTAL PROTEIN 7.4 gm/dL (6.0-8.0); TRIGLYCERIDES 221 mg/dl (<150)
== END | disposition home or self-care (01) ==
LOC: LAB 12:05
PROVIDERS: ATTEND Nurse Practitioner Family
DX: I10 Essential (primary) hypertension (principal); E11.9 Type 2 diabetes mellitus without complications; E78.5 Hyperlipidemia, unspecified

== ENCOUNTER → 2023-02-26 | Outpatient (CLI) | payer OTHER ==
[2023-02-26 10:56] LABS: BASO # 0.1 10*3/uL (0.0-0.1); BASO % 0.8 % (0.0-1.0); EOS # 0.3 10*3/uL (0.0-0.4); EOS % 2.8 % (1.0-4.0); HEMATOCRIT 42.4 % (42.0-52.0); LYMPH # 1.7 10*3/uL (1.3-4.4); LYMPH % 16.1 % (27.0-41.0); MEAN CELL VOLUME 86.2 fl (80.0-94.0); MEAN CORPUSCULAR HGB 27.4 pg (27.0-31.0); MEAN CORPUSCULAR HGB CONC 31.8 g/dl (33.0-37.0); MEAN PLATELET VOLUME 9.3 fl (9.6-12.3); MONO # 0.6 10*3/uL (0.1-1.0); NEUT # 7.9 10*3/uL (2.3-7.9); NEUT % 73.7 % (47.0-73.0); PLATELET COUNT AUTOMATED 275 10*3/uL (130-400); RED BLOOD COUNT 4.92 10*6/uL (4.50-5.90); RED CELL DISTRI WIDTH 14.3 % (0-14.5); WHITE BLOOD COUNT 10.7 10*3/uL (4.8-10.8)
[2023-02-26 11:36] LABS: ALKALINE PHOSPHATASE 92 U/L (46-116); BUN 17 mg/dl (9-23); CHLORIDE 104 mmol/L (98-107); CHOLESTEROL 127 mg/dL (<200); LDL CHOLESTEROL 53 mg/dL (9-159); POTASSIUM 4.4 mmol/L (3.4-5.1); SGPT/ALT 20 U/L (10-49); TOTAL PROTEIN 7.3 gm/dL (6.0-8.0); TRIGLYCERIDES 178 mg/dl (<150)
== END | disposition home or self-care (01) ==
LOC: LAB 10:38
PROVIDERS: ATTEND Nurse Practitioner Primary Care
DX: E11.9 Type 2 diabetes mellitus without complications (principal); E78.5 Hyperlipidemia, unspecified; I10 Essential (primary) hypertension

== ENCOUNTER → 2023-05-27 | Outpatient (CLI) | payer OTHER ==
[~2023-05-27] MED LIST changes: +BUSPIRONE10 MG PO; +LANTUS SOL100 UNIT/1 SC; +TRULICITY4.5 MG/0.5 SQ
[2023-05-27 13:33] LABS: BASO # 0.1 10*3/uL (0.0-0.1); BASO % 0.5 % (0.0-1.0); EOS # 0.3 10*3/uL (0.0-0.4); EOS % 1.9 % (1.0-4.0); HEMATOCRIT 38.6 % (42.0-52.0); LYMPH # 1.3 10*3/uL (1.3-4.4); LYMPH % 9.2 % (27.0-41.0); MEAN CELL VOLUME 80.9 fl (80.0-94.0); MEAN CORPUSCULAR HGB 24.9 pg (27.0-31.0); MEAN CORPUSCULAR HGB CONC 30.8 g/dl (33.0-37.0); MEAN PLATELET VOLUME 9.3 fl (9.6-12.3); MONO # 0.8 10*3/uL (0.1-1.0); MONO % 5.6 % (3.0-9.0); NEUT # 11.8 10*3/uL (2.3-7.9); NEUT % 81.9 % (47.0-73.0); PLATELET COUNT AUTOMATED 369 10*3/uL (130-400); RED BLOOD COUNT 4.77 10*6/uL (4.50-5.90); RED CELL DISTRI WIDTH 15.2 % (0-14.5); WHITE BLOOD COUNT 14.4 10*3/uL (4.8-10.8)
[2023-05-27 13:59] LABS: TOTAL PROTEIN 7.2 gm/dL (6.0-8.0)
== END | disposition home or self-care (01) ==
LOC: LAB 13:09
PROVIDERS: ATTEND Nurse Practitioner Family
DX: R05.1 Acute cough (principal); I10 Essential (primary) hypertension; E78.5 Hyperlipidemia, unspecified; E11.9 Type 2 diabetes mellitus without complications

== ENCOUNTER → 2025-04-07 | Outpatient (CLI) | payer OTHER ==
[~2025-04-07] MED LIST changes: +LEVOFLOXACIN750 M2 PO; +MUCUS RELIEF600 MG PO
== END | disposition home or self-care (01) ==
LOC: CARD 10:13
PROVIDERS: ATTEND Family Medicine
DX: R00.0 Tachycardia, unspecified (principal)